=== PATIENT | female | born 1965 | race African-American/Black ===

== ENCOUNTER 2022-04-10 08:50 | Outpatient (CLI) | payer BC, SELFPAY ==
--- NOTE | 2022-04-10 08:45 | CRLHL7_ITS ---
For Patients: As a result of the Century Cures Act, medical imaging exams and procedure reports are released immediately into your electronic medical record. You may view this report before your referring provider. If you have questions, please contact your health care provider. INDICATION: INCREASED PELVIC PAIN, HX BREAST CA, ON TAMOXIFEN, KNOWN FIBROIDS COMPARISON: 02/14/2021 TECHNIQUE: 2D grace scale and color Doppler images were acquired of the pelvis using a transabdominal and transvaginal approach. FINDINGS: Sonographic images demonstrate an increased size and lobular outer contour of the uterus. Uterus measures 12.1 cm in length by 6.9 cm in AP diameter by 9.8 cm in transverse dimension. The myometrium has a heterogeneous echotexture. Multiple fibroids again noted. For example, there is a fibroid in the fundal myometrium measuring 4.7 x 5.1 x 4.7 cm. A smaller fibroid is present within the mid uterus measuring 3.3 x 3.0 x 3.4 cm. Other ill-defined suspected fibroids are present elsewhere. The fibroid uterus makes the endometrium difficult to visualize. The endometrium appears to measure 8 millimeters. A trace amount of endometrial fluid is present. The ovaries are not visualized. No adnexal mass. IMPRESSION: Multiple uterine fibroids. Endometrial thickness approximately 8 millimeters with a trace amount of endometrial fluid. Dictated by Ravinder Glass MD @ 04/10/2022 11:28:34 AM (Electronically Signed)
== END 2022-04-10 08:51 | disposition home or self-care (01) ==
LOC: US 08:52
PROVIDERS: PCP Family Medicine; Visit Provider Internal Medicine Hematology & Oncology
DX: R10.2 Pelvic and perineal pain (principal); D25.9 Leiomyoma of uterus, unspecified
CPT/HCPCS: 76830

== ENCOUNTER 2022-08-30 09:10 | Outpatient (CLI) | payer BC, SELFPAY ==
[2022-08-30 13:45] LABS: Cholesterol* 177 mg/dL (90-199); HDL Cholesterol* 66 mg/dL (>=50); LDL Cholesterol Calculated 97 mg/dL (<100); Triglycerides* 68 mg/dL (40-149)
== END 2022-08-30 09:11 | disposition home or self-care (01) ==
LOC: LKVREF 09:10
PROVIDERS: PCP Family Medicine; Visit Provider Family Medicine
DX: E78.5 Hyperlipidemia, unspecified (principal)
CPT/HCPCS: 80061

== ENCOUNTER 2022-10-25 09:00 | Outpatient (RCR) | payer BC, SELFPAY | END 2022-11-11 23:59 | disposition home or self-care (01) | LOC: CCIC 09:00 | PROVIDERS: PCP Family Medicine; Visit Provider Physician Assistant | DX: C50.911 Malignant neoplasm of unspecified site of right female breast (principal); Z79.810 Long term (current) use of selective estrogen receptor modulators (SERMs); C77.3 Secondary and unspecified malignant neoplasm of axilla and upper limb lymph nodes; N64.59 Other signs and symptoms in breast | CPT/HCPCS: 99212; 99214; 99215 ==

== ENCOUNTER 2022-11-01 08:45 | Outpatient (CLI) | payer BC, SELFPAY ==
--- NOTE | 2022-11-01 08:45 | CRLHL7_ITS ---
For Patients: As a result of the Cures Act, medical imaging exams and procedure reports are released immediately into your electronic medical record. You may view this report before your referring provider. If you have questions, please contact your health care provider. DIGITAL DIAGNOSTIC BILATERAL MAMMOGRAM USING TOMOSYNTHESIS AND COMPUTER-AIDED DETECTION LEFT BREAST ULTRASOUND CLINICAL HISTORY: New sensation in LEFT breast x 2-3 months. COMPARISON: 12/26/2021, 01/31/2021, 10/21/2020, 01/15/2020. TECHNIQUE: Digital BILATERAL mammogram in four projections. Tomosynthesis and CAD utilized. Real-time ultrasound imaging of LEFT breast with imaging documentation. BREAST COMPOSITION: There are areas of scattered fibroglandular density. FINDINGS: 3D CC/MLO BILATERAL mammogram images submitted. Postop changes RIGHT lumpectomy and BILATERAL reduction mammoplasty. Benign calcifications. No suspicious masses or architectural distortion. Targeted LEFT breast ultrasound performed in the retroareolar region demonstrates no sonographic abnormality. No fluid collection or mass. IMPRESSION: No evidence of malignancy. Normal BILATERAL 3D mammograms and targeted LEFT breast ultrasound. RECOMMENDATIONS: Clinical follow-up. Routine screening mammography. Results and recommendations discussed with the patient. BI-RADS Category 2: Benign A lay language report of this examination will be provided to the patient. Dictated by Ravinder Glass MD @ 11/01/2022 10:18:56 AM /Dictated by: Ravinder Glass MD @ 11/01/2022 10:19:00 AM (Electronically Signed)
--- NOTE | 2022-11-01 09:15 | CRLHL7_ITS ---
For Patients: As a result of the Cures Act, medical imaging exams and procedure reports are released immediately into your electronic medical record. You may view this report before your referring provider. If you have questions, please contact your health care provider. PLEASE SEE DIGITAL DIAGNOSTIC BILATERAL MAMMOGRAM PERFORMED SAME DAY CRL:amelia cisneros/Dictated by: Ravinder Glass MD @ 11/01/2022 10:19:00 AM (Electronically Signed)
== END 2022-11-01 08:46 | disposition home or self-care (01) ==
LOC: MAMMO 08:47
PROVIDERS: PCP Family Medicine; Visit Provider Physician Assistant
DX: N64.59 Other signs and symptoms in breast (principal); C77.3 Secondary and unspecified malignant neoplasm of axilla and upper limb lymph nodes; Z80.3 Family history of malignant neoplasm of breast
CPT/HCPCS: 76642; 77065; G0279

== ENCOUNTER 2023-02-20 08:55 | Outpatient (CLI) | payer BC, SELFPAY | END 2023-02-20 08:56 | disposition home or self-care (01) | LOC: NFLDREF 02-21 12:26 | PROVIDERS: PCP Family Medicine; Referring Provider Family Medicine; Visit Provider Family Medicine | DX: R73.03 Prediabetes (principal); I10 Essential (primary) hypertension; D70.9 Neutropenia, unspecified; D64.9 Anemia, unspecified | CPT/HCPCS: 80048; 80061; 82043; 82570 ==

== ENCOUNTER 2023-06-27 08:07 | Outpatient (RCR) | payer BC, SELFPAY ==
--- NOTE | 2023-12-20 09:54 | ONC.NURNOTE ---
Cancelled upcoming appointment 12/25/23 with Oncology. E Commerce Project Manager spoke with patient and has undergone 3 chemo sessions for Leiomyosarcoma with [facility] and will be staying with them at this time.
== END 2023-12-24 23:59 | disposition home or self-care (01) ==
LOC: CCIC 08:07
PROVIDERS: PCP Family Medicine; Visit Provider Physician Assistant
DX: C50.911 Malignant neoplasm of unspecified site of right female breast (principal); Z17.0 Estrogen receptor positive status [ER+]; C77.3 Secondary and unspecified malignant neoplasm of axilla and upper limb lymph nodes; D36.9 Benign neoplasm, unspecified site; R10.9 Unspecified abdominal pain
CPT/HCPCS: 99212; 99215

== ENCOUNTER 2023-06-28 11:30 | Outpatient (CLI) | payer BC, SELFPAY ==
--- NOTE | 2023-06-28 12:38 | W.ANESCHARGE ---
Anesthesia Charges Start Date/Time Anesthesia Start Date: 06/28/23 Anesthesia Start Time: 12:19 Stop Date/Time Anesthesia Stop Date: 06/28/23 Anesthesia Stop Time: 12:44
--- NOTE | 2023-06-28 12:46 | W.ANESCHARGE ---
Anesthesia Charges Start Date/Time Anesthesia Start Date: 06/28/23 Anesthesia Start Time: 12:19 Stop Date/Time Anesthesia Stop Date: 06/28/23 Anesthesia Stop Time: 12:44
== END 2023-06-28 11:31 | disposition home or self-care (01) ==
LOC: OP CLINIC 11:30
PROVIDERS: PCP Family Medicine; Visit Provider Internal Medicine
DX: Z12.11 Encounter for screening for malignant neoplasm of colon (principal); K57.30 Diverticulosis of large intestine without perforation or abscess without bleeding; Z86.010 Personal history of colon polyps
CPT/HCPCS: 00811; 00812; 45378; J2704

== ENCOUNTER 2023-07-09 13:24 | Outpatient (CLI) | payer BC, SELFPAY ==
--- NOTE | 2023-07-09 14:00 | CRLHL7_ITS ---
For Patients: As a result of the Century Cures Act, medical imaging exams and procedure reports are released immediately into your electronic medical record. You may view this report before your referring provider. If you have questions, please contact your health care provider. Indication: ABDOMINAL PAIN LOWER ABDOMEN Technique: CT Abdomen/Pelvis W/ 114CC [id number] Please note that all CT scans at this facility use dose modulation, iterative reconstruction, and/or weight-based dosing when appropriate to reduce radiation dose to as low as reasonably achievable. Comparison: CT 09/20/2015, pelvic ultrasound 04/10/2022 Findings: 1.1 cm simple cyst within the liver. Diffuse low attenuation of the hepatic parenchyma present. The liver is enlarged measuring 21 cm. Lung bases are clear. The adrenal glands are normal. Normal kidneys. The spleen is within normal limits. Normal pancreas. Gallbladder is normal. No bowel obstruction. A few scattered subcentimeter retroperitoneal lymph nodes are similar. Atherosclerotic changes. No aneurysm. The bladder is incompletely distended. Ovaries are unremarkable. The uterus is enlarged, as before with endometrial thickening. The endometrium measures approximately 4 cm. Multiple uterine fibroids are present measuring up to approximately 8.9 cm. Weakening of the ventral abdominal wall again noted. There is now a small fat filled hernia in the supraumbilical midline containing fat measuring 2.9 cm. Mild pelvic free fluid is present. No fracture is present. Mild bulging of the discs in the lower lumbar spine without severe stenosis. Mild degenerative changes at both hips. Impression: Fibroid uterus. The uterus is enlarged with multiple fibroids. Thickened endometrium is present. Patient has a history of tamoxifen therapy. Normal ovaries. Gynecologic referral suggested. Hepatomegaly with diffuse hepatic steatosis and incidental intrahepatic cyst. Chronic diastasis recti with small supraumbilical midline abdominal wall hernia containing fat measuring 3 cm. Please note that all CT scans at this facility use dose modulation, iterative reconstruction, and/or weight-based dosing when appropriate to reduce radiation dose to as low as reasonably achievable. Dictated by Ravinder Glass MD @ 07/11/2023 11:13:19 AM (Electronically Signed)
== END 2023-07-09 13:25 | disposition home or self-care (01) ==
LOC: CT 13:25
PROVIDERS: PCP Family Medicine; Visit Provider Nurse Practitioner Family
DX: R10.9 Unspecified abdominal pain (principal); D25.9 Leiomyoma of uterus, unspecified; R93.89 Abnormal findings on diagnostic imaging of other specified body structures
CPT/HCPCS: 74177; Q9967

== ENCOUNTER 2023-07-17 13:40 | Outpatient (CLI) | payer BC, SELFPAY | END 2023-07-17 13:41 | disposition home or self-care (01) | LOC: NFLDREF 07-24 15:45 | PROVIDERS: PCP Family Medicine; Referring Provider Family Medicine; Visit Provider Family Medicine | DX: C50.911 Malignant neoplasm of unspecified site of right female breast (principal); D70.9 Neutropenia, unspecified; E78.00 Pure hypercholesterolemia, unspecified; I10 Essential (primary) hypertension; R73.03 Prediabetes | CPT/HCPCS: 80053; 80061 ==

== ENCOUNTER 2023-08-08 08:28 | Outpatient (CLI) | payer BC, SELFPAY ==
--- NOTE | 2023-08-08 08:45 | CRLHL7_ITS ---
For Patients: As a result of the Cures Act, medical imaging exams and procedure reports are released immediately into your electronic medical record. You may view this report before your referring provider. If you have questions, please contact your health care provider. DIGITAL DIAGNOSTIC BILATERAL MAMMOGRAM USING TOMOSYNTHESIS AND COMPUTER-AIDED DETECTION LEFT BREAST ULTRASOUND CLINICAL HISTORY: LEFT breast lump. COMPARISON: 11/01/2022, 12/26/2021, 01/31/2021, 10/21/2020. TECHNIQUE: Digital BILATERAL mammogram in two projections. Tomosynthesis and CAD utilized. Real-time ultrasound imaging of LEFT breast with imaging documentation. BREAST COMPOSITION: There are areas of scattered fibroglandular density. FINDINGS: 3D CC/MLO mammogram images submitted bilaterally. Circumscribed low-density structures are present within the upper outer quadrant LEFT breast. No architectural distortion. Benign calcifications noted bilaterally. No adenopathy. Post treatment changes of the RIGHT breast. Targeted LEFT breast ultrasound performed at 11 o`clock 10 cm from the nipple. Multiple benign calcified oil cysts are present at anterior depth measuring up to 6 millimeters. IMPRESSION: Benign calcified oil cysts LEFT breast 11 o`clock 10 cm from the nipple. No suspicious findings. RECOMMENDATIONS: Routine screening mammography. Results and recommendations discussed with the patient. BI-RADS Category 2: Benign A lay language report of this examination will be provided to the patient. Dictated by Ravinder Glass MD @ 08/08/2023 10:58:52 AM jj/Dictated by: Ravinder Glass MD @ 08/08/2023 10:59:00 AM (Electronically Signed)
--- NOTE | 2023-08-08 09:15 | CRLHL7_ITS ---
For Patients: As a result of the Cures Act, medical imaging exams and procedure reports are released immediately into your electronic medical record. You may view this report before your referring provider. If you have questions, please contact your health care provider. PLEASE SEE DIGITAL DIAGNOSTIC BILATERAL MAMMOGRAM PERFORMED SAME DAY CRL:amelia cisneros/Dictated by: Ravinder Glass MD @ 08/08/2023 11:30:00 AM (Electronically Signed)
== END 2023-08-08 08:29 | disposition home or self-care (01) ==
LOC: MAMMO 08:28
PROVIDERS: PCP Family Medicine; Visit Provider Nurse Practitioner Family
DX: N63.22 Unspecified lump in the left breast, upper inner quadrant (principal); N60.02 Solitary cyst of left breast
CPT/HCPCS: 76642; 77066; G0279

== ENCOUNTER 2024-01-10 16:20 | Outpatient (CLI) | payer BC, SELFPAY ==
--- OUTSIDE RECORDS SUMMARY | 2024-01-10 16:23 | XMS_ITS | Referral Summary ---
Author Organization [facility] Address [address] [place] [id number] Care Team Providers Care Rent Collector Name Role Phone Tavo Vazquez MD Unavailable [phone] Sajan Petit MD Primary Care Provider [phone] Allergies Active Allergy Reactions Criticality Noted Date Comments Anastrozole Itching High 04/28/2018 Doxepin Dizziness Medium 04/28/2018 Medications Medication Sig Dispensed Refills Start Date End Date Status famotidine (PEPCID) 20 MG tablet Take 1 tablet (20 mg) by mouth 2 times daily 30 tablet 08/19/2019 Active metoclopramide (REGLAN) 5 MG tablet Take 1 tablet (5 mg) by mouth 4 times daily as needed (headache) 10 tablet 08/19/2019 Active diphenhydrAMINE (BENADRYL ALLERGY) 25 MG tablet Take 1 tablet (25 mg) by mouth 4 times daily as needed for other (Take when you take reglan) 10 tablet 08/19/2019 Active Active Problems Problem Noted Date Diagnosed Date Malignant neoplasm of right breast 06/11/2017 Family history of malignant neoplasm of breast 1 08/11/2016 Social History Tobacco Use Types Packs/Day Years Used Date Smoking Tobacco: Never Assessed Adolescent Education Answer Date Record ed Getting School Help Needed Not on file 04/05 Sex and Gender Information Value Date Recorded Sex Assigned at Not on file Gender Identity Not on file Sexual Orientation Not on file Last Filed Vital Signs Vital Sign Reading Time Taken Comments Blood Pressure 175/96 11/25/2022 9:48 PM CDT Pulse 93 11/25/2022 9:48 PM CDT Temperature 36.2 ??C (97.2 ??F) 11/25/2022 9:48 PM CD T Respiratory Rate 16 11/25/2022 9:48 PM CDT Oxygen Saturation 99% 11/25/2022 9:48 PM CDT Inhaled Oxygen Concentration - - Weight 99.8 kg (220 lb) 08/19/2019 4:10 PM CHILD SUPPORT OFFICER Height 165.1 cm (5' 5) 08/19/2019 4:10 PM CHILD SUPPORT OFFICER Body Mass Index 36.61 08/19/2019 4:10 PM CHILD SUPPORT OFFICER Plan of Treatment Not on file Procedures Procedure Name Priority Date/Time Associated Diagnosis Comments BASIC METABOLIC PANEL STAT 08/19/2019 5:41 PM CHILD SUPPORT OFFICER from Last 3 Months or Most Recently Relevant to Health Maintenance Results * Basic metabolic panel (08/19/2019 5:41 PM CHILD SUPPORT OFFICER) Sodium 140 133 - 144 mmol/L 08/19/2019 6:[address] [facility] Potassium 3.7 3.4 - 5.3 mmol/L 08/19/2019 6:[address] [facility] Chloride 104 94 - 109 mmol/L 08/19/2019 6:[address] [facility] Carbon Dioxide 31 20 - 32 mmol/L 08/19/2019 6:[address] [facility] Anion Gap 5 3 - 14 mmol/L 08/19/2019 6:[address] [facility] Glucose 92 70 - 99 mg/dL 08/19/2019 6:[address] [facility] Urea Nitrogen 10 7 - 30 mg/dL 08/19/2019 6:[address] [facility] Creatinine 0.71 0.52 - 1.04 mg/dL 08/19/2019 6:[address] [facility] GFR Estimate >90 >60 mL/min/{1. 73_m2} 08/19/2019 6:[address] [facility] Comment: Non GFR Calc Starting 07/01/2018, serum creatinine based estimated GFR (eGFR) will be calculated using the Chronic Kidney Disease Epidemiology Collaboration (CKD-EPI) equation. GFR Estimate If Black >90 >60 mL/min/{1. 73_m2} 08/19/2019 6:[address] [facility] Comment: GFR Calc Starting 07/01/2018, serum creatinine based estimated GFR (eGFR) will be calculated using the Chronic Kidney Disease Epidemiology Collaboration (CKD-EPI) equation. Calcium 9.2 8.5 - 10.1 mg/dL 08/19/2019 6:09 PM CHILD SUPPORT OFFICER [facility] Blood specimen (specimen) 08/19/2019 5:41 PM CHILD SUPPORT OFFICER 08/19/2019 5:47 PM CHILD SUPPORT OFFICER Ravinder Nichole MD LAB - BLOOD [facility] [address] [place], [place] [address] [phone] from Last 3 Months or Most Recently Relevant to Health Maintenance Care Teams Rent Collector Relationship Specialty Start Date End Date Sajan Petit MD [facility] [address] [place] [address] PCP - General Family Practice 08/19/19 Tavo Vazquez MD [facility] [address] [facility] [address] [place] [address] Oncology 02/12/17
--- OUTSIDE RECORDS SUMMARY | 2024-01-10 16:23 | XMS_ITS | Clinical Summary ---
Author Organization [facility] Address [place], [place] [address] Care Team Providers Care Property Claim Rep Name Role Phone Sajan Petit MD Primary Care Provider [phone] Allergies Active Allergy Reactions Criticality Noted Date Comments Anastrozole Itching High 04/28/2018 Doxepin Dizziness Medium 04/28/2018 Tetracyclines Nausea And Vomiting 09/13/2023 Medications Medication Sig Dispensed Refills Start Date End Date Status LORazepam (ATIVAN) 0.5 mg tab Take 0.5 mg by mouth at bedtime if needed. Active lisinopril (PRINIVIL; ZESTRIL) 20 mg tablet Take 20 mg by mouth once daily. Active metFORMIN (GLUCOPHAGE XR) 500 mg Extended-Release tablet Take 500 mg by mouth once daily. 07/03/2023 Active rosuvastatin (CRESTOR) 10 mg tablet Take 10 mg by mouth once daily. 07/12/2023 Active hydroCHLOROthiazid e (HCTZ) 25 mg tablet Take 25 mg by mouth once daily. 07/21/2023 Active acetaminophen (TYLENOL) 325 mg tabletIndications: Endometrial cancer (HC) Take 1-2 Tablets (325-650 mg) by mouth every 4 hours if needed for Pain. Max acetaminophen dose: 4000mg in 24 hrs. 08/25/2023 Active ibuprofen (ADVIL; MOTRIN) 200 mg tabletIndications: Endometrial cancer (HC) Take 1-3 Tablets (200-600 mg) by mouth every 6 hours if needed for Pain. 08/25/2023 Active oxyCODONE (ROXICODONE) 5 mg immediate release tabletIndications: Endometrial cancer (HC) Take 1 Tablet (5 mg) by mouth every 4 hours if needed for Pain. 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 Endometrial cancer 08/21/2023 Social History Tobacco Use Types Packs/Day Years Used Date Smoking Tobacco: Never Smokeless Tobacco: Never Alcohol Use Standard Drinks/Week Comments No 0 (1 standard drink = 0.6 oz pur e alcohol) Social Connections Answer Date Recorded Frequency of Communication with Friends and Fami ly Not on file 08/20/2023 Sex and Gender Information Value Date Recorded Sex Assigned at Not on file Gender Identity Not on file Sexual Orientation Not on file Obstetrics History Last Filed Vital Signs Vital Sign Reading Time Taken Comments Blood Pressure 139/66 09/13/2023 10:15 AM JIG GRINDER Pulse 75 09/13/2023 10:15 AM JIG GRINDER Temperature 37.1 ??C (98.7 ??F) 09/13/2023 7:16 AM CS T Respiratory Rate 16 09/13/2023 10:15 AM JIG GRINDER Oxygen Saturation 99% 09/13/2023 10:15 AM JIG GRINDER Inhaled Oxygen Concentration - - Weight 98 kg (216 lb) 09/13/2023 7:16 AM JIG GRINDER Height 165.1 cm (5' 5) 09/13/2023 7:16 AM JIG GRINDER Body Mass Index 35.94 09/13/2023 7:16 AM JIG GRINDER Plan of Treatment Health Maintenance Due Date Last Done Comments Tdap 1977 Depression screening for age 12+ 1978 HIV for age 15-65 1981 BMI (ht and wt on same day) for age 18+ 1984 Hepatitis C screening for age 18-79 1984 Tetanus booster 1986 Colonoscopy through age 75 11/02/2011 Lipids for age 45-75 11/02/2011 Zoster (shingles) series for age 50+ (1 of 2) 2016 Mammogram for age 45-75 01/02/2020 01/01/2019, 12/31 COVID-19 vaccine series (2022- season) 2023 04/18/2022, 09/26/2021, 01/31/2021, Additional history exists Influenza for age 50-64 03/15/2024 Pap test for age 21-65 07/29/2026 , 07/29/2023, 01/20/2018, Additional history exists Pneumococcal series for age 6-64 Aged Out No longer eligible based on patient's age to complete this topic Procedures Procedure Name Priority Date/Time Associated Diagnosis Comments HPV THIN PREP Routine 07/29/2023 12:00 PM JIG GRINDER SCAN-MAMMOGRAPHY REPORT 01/01/2019 12:00 AM CDT from Last 3 Months or Most Recently Relevant to Health Maintenance Results * HPV HIGH RISK (07/29/2023 12:00 PM JIG GRINDER) TYPE 16 Negative Negative 08/01/2023 5:31 PM JIG GRINDER [facility] TYPE 18 Negative Negative 08/01/2023 5:31 PM JIG GRINDER [facility] OTHER HIGH RISK TYPES Negative Negative 08/01/2023 5:31 PM JIG GRINDER [facility] Other (Cervical) 07/29/2023 12:00 PM JIG GRINDER 07/30/2023 6:07 PM JIG GRINDER Narrative [facility] - 08/01/2023 5:31 PM JIG GRINDER HPV types 16, 18, 31, 33, 35, 39, 45, 51, 52, 56, 58, 59, 66 and 68 DNA were undetectable or below the pre-set threshold. Methodology: Sania Un[facility] 4800 HPV Test Doctor Unknown MICROBIOLOGY [facility] [address] [place] [address], * SCAN-MAMMOGRAPHY REPORT (01/01/2019 12:00 AM CDT) Anatomical Region Laterality Modality Other Scanner OTHER from Last 3 Months or Most Recently Relevant to Health Maintenance Advance Directives * Full Code (Latest Code Status on File) Date Activated Date Inactivated Comments 08/20/2023 2:27 PM 08/25/2023 7:52 PM Question Answer Comments Code Status Discussion: Reviewed Preferences * Full Code Date Activated Date Inactivated Comments 08/20/2023 7:43 AM 08/20/2023 2:27 PM Question Answer Comments Code Status Discussion: Unable to Assess Preferences, Provider to review later * Full Code Date Activated Date Inactivated Comments 05/01/2018 5:58 AM 05/01/2018 5:38 PM Question Answer Comments Code Status Discussion: Not Discussed Care Teams Property Claim Rep Relationship Specialty Start Date End Date Sajan Petit MD [address] [place] [address] PCP - General Family Practice 04/28/18
--- OUTSIDE RECORDS SUMMARY | 2024-01-10 16:23 | XMS_ITS | Clinical Summary ---
Author Organization [facility] Address [address] [address] Care Team Providers Care Ceramics Technician Name Role Phone Sajan Petit MD Primary Care Provider [phone] Source Comments You are receiving this document as you are listed as the primary care provider,follow-up provider, or the patient has been referred to you for consultation.This is in compliance with the Medicare and[facility] EHR Incentive Program,which states Providers who transition their patient to another setting of careor provider of care or refers their patient to another provider of care shouldprovide summary care record for each transition of care or referral. [facility] Allergies Active Allergy Reactions Criticality Noted Date Comments Anastrozole Itching High 04/28/2018 Doxepin Dizziness Medium 04/28/2018 Medications Medication Sig Dispensed Refills Start Date End Date Status exemestane (AROMASIN) 25 MG tablet Take 1 Tablet (25 mg) by mouth. Active hydroCHLOROthiazide (ORETIC) 12.5 MG tablet Take 1 Tablet (12.5 mg) by mouth. Active tamoxifen (NOLVADEX) 20 MG tablet Take 1 Tablet (20 mg) by mouth daily. Active Social History Tobacco Use Types Packs/Day Years Used Date Smoking Tobacco: Never Assessed Sex and Gender Information Value Date Recorded Sex Assigned at Not on file Gender Identity Not on file Sexual Orientation Not on file Plan of Treatment Health Maintenance Due Date Last Done Comments Cervical Cancer Screening Due 1966 Colon Cancer Screening Plan Due 1966 Hep C Screening (Preventive Services) 1966 Mammogram 1966 HIV Screening (Preventive Services) 1982 Adult Preventive Visit 1984 DTaP/Tdap/Td (1 - Tdap) 1985 HepB (1) 1985 Cholesterol 11/02/2011 Zoster/Shingles (1 of 2) 2016 COVID-19 Vaccine (1 - 2022-2 4 season) 2023 Influenza (Season Ended) 2024 HepA Aged Out No longer eligi ble based on patient's age to complete this topic Hib Aged Out No longer eligi ble based on patient's age to complete this topic IPV (Polio) Aged Out No longer eligi ble based on patient's age to complete this topic MCV4 Aged Out No longer eligi ble based on patient's age to complete this topic Pneumococcal Aged Out No longer eligi ble based on patient's age to complete this topic Care Teams Ceramics Technician Relationship Specialty Start Date End Date Sajan Petit MD [address] [place] [address] PCP - General Family Practice 12/14/22
--- OUTSIDE RECORDS SUMMARY | 2024-01-10 16:23 | XMS_ITS | Continuity of Care Document ---
Author Organization [facility] Address [address] [address] [place] [address] Phone Care Team Providers Care Respiratory Care Specialist Name Role Phone Karan Galvan MD Unavailable Unavailable Advance Directives Directive Yes / No Effective Date File Name No Information Encounters Encounter Description Practice Location Reason(s) For Visit Diagnoses Date Provider Providers Copied on Encounter [facility], [address] [address], [place], [place], [id number], [place] tel:[phone] [facility] No Information Mandy Russo. [address] [facility], [address], [place], [place], [id number], [place]. tel:[phone] Family History Family Member Type Diagnosis Age At Onset No Information Immunizations Vaccine Date Status Comments SARS-COV-2 (COVID-19) vaccin e, mRNA, spike protein, LNP, preservative free, 30 mcg/0.3mL dose administered Note: [facility] bi-direct ional interface ; Source: Other Registry SARS-COV-2 (COVID-19) vaccin e, mRNA, spike protein, LNP, preservative free, 30 mcg/0.3mL dose administered Note: [facility] bi-direct ional interface ; Source: Other Registry Seasonal, quadrivalent, recombinant, injectable influenza vaccine, preservative free administered Note: [facility] bi-direct ional interface ; Source: Other Registry Afluria Qd administered Note: [facility] bi-directional interface ; Source: Other Registry Afluria Qd administered Note: [facility] bi-directional interface ; Source: Other Registry tetanus and diphtheria toxoi ds, adsorbed, preservative free, for adult use (5 Lf of tetanus toxoid and 2 Lf of diphtheria toxoid) administered Note: [facility] bi-direct ional interface ; Source: Other Registry Pneumovax 23 administered Note: [facility] bi-d irectional interface ; Source: Other Registry tetanus and diphtheria toxoi ds, adsorbed, preservative free, for adult use (5 Lf of tetanus toxoid and 2 Lf of diphtheria toxoid) administered Note: [facility] bi-direct ional interface ; Source: Other Registry Afluria Qd administered Note: [facility] bi-directional interface ; Source: Other Registry Havrix administered Note: [facility] bi-d irectional interface ; Source: Other Registry measles, mumps and rubella v irus vaccine administered Note: [facility] bi-direct ional interface ; Source: Other Registry tetanus toxoid, reduced diphtheria toxoid, and acellular pertussis vaccine, adsorbed administered Note: [facility] b i-directional interface ; Source: Other Registry Influenza, seasonal, injectable administe red Note: [facility] bi- directional interface ; Source: Other Registry measles, mumps and rubella v irus vaccine administered Note: [facility] bi-direct ional interface ; Source: Other Registry Havrix administered Note: [facility] bi-d irectional interface ; Source: Other Registry Payers Payer name Insurance type Covered libertarian ID Authoriza tion(s) No Information Social History Type Description Quantity Date Captured Comments Sex Female Smoking Status No Information Chief Complaint And Reason For Visit No Information Reason For Referral Reason For Referral No Information History Of Present Illness Encounter Date Complaint History Of Prese nt Illness No Information Functional Status Date Functional Assessmen t No Information Instructions Date Instruction Additional Infor mation No Information Assessments Type Assessment Date No Information Patient Care Teams Name Effective Dates (start - stop) Status Members No Information
--- OUTSIDE RECORDS SUMMARY | 2024-01-10 16:23 | XMS_ITS | Clinical Summary ---
Author Organization [facility] Address [address] [place] [address] Care Team Providers Care Barber Instructor Name Role Phone Tavo Vazquez MD Unavailable [phone] Sajan Petit MD Primary Care Provider [phone] Allergies Active Allergy Reactions Criticality Noted Date [...] 99.8 kg (220 lb) 08/19/2019 4:10 PM MANAGER RFID Height 165.1 cm (5' 5) 08/19/2019 4:10 PM MANAGER RFID Body Mass Index 36.61 08/19/2019 4:10 PM MANAGER RFID Plan of Treatment Health Maintenance Due Date Last Done Comments ADVANCE CARE PLANNING 1966 ANNUAL REVIEW OF HM ORDERS 1966 CT COLONOGRAPHY 1966 FIT 1966 FLEX SIG 1966 MAMMO SCREENING 1966 YEARLY PREVENTIVE VISIT 1966 sDNA (Cologuard) 1966 COLONOSCOPY 1976 COLORECTAL CANCER SCREENING 1976 HIV SCREENING 1981 HEPATITIS C SCREENING 1984 HEPATITIS B IMMUNIZATION (1 of 3 - 19+ 3-dose series) 1985 PAP 11/02/1987 LIPID 2006 DTAP/TDAP/TD IMMUNIZATION (1 - Tdap) 02/03/2015 02/02/2015, 08/03/2014 ZOSTER IMMUNIZATION (1 of 2) 2016 GLUCOSE 08/19/2022 08/19/2019 COVID-19 Vaccine (1 - season) 2023 PHQ-2 (once per calendar year) 2023 INFLUENZA VACCINE (Season Ended) 2024 06/04/2019, 04/18/2018, 05/12/2015, Additional history exists HPV IMMUNIZATION Aged Out No longer e ligible based on patient's age to complete this topic IPV IMMUNIZATION Aged Out No longer e ligible based on patient's age to complete this topic MENINGITIS IMMUNIZATION Aged Out No l onger eligible based on patient's age to complete this topic Pneumococcal Vaccine: Pediatrics (0 to 5 Years) and At-Risk Patients (6 to 64 Years) Aged Out No longer eligible based on patient's age to complete this topic RSV MONOCLONAL ANTIBODY Aged Out No l onger eligible based on patient's age to complete this topic Procedures Procedure Name Priority Date/Time Associated Diagnosis Comments BASIC METABOLIC PANEL STAT 08/19/2019 5:41 PM MANAGER RFID from Last 3 Months or Most Recently Relevant to Health Maintenance Results * Basic metabolic panel (08/19/2019 5:41 PM MANAGER RFID) Sodium 140 133 - 144 mmol/L 08/19/2019 6:04 PM [facility] Potassium 3.7 3.4 - 5.3 mmol/L 08/19/2019 6:04 PM [facility] Chloride 104 94 - 109 mmol/L 08/19/2019 6:04 PM [facility] Carbon Dioxide 31 20 - 32 mmol/L 08/19/2019 6:09 PM [facility] Anion Gap 5 3 - 14 mmol/L 08/19/2019 6:09 PM [facility] Glucose 92 70 - 99 mg/dL 08/19/2019 6:09 PM [facility] Urea Nitrogen 10 7 - 30 mg/dL 08/19/2019 6:09 PM [facility] Creatinine 0.71 0.52 - 1.04 mg/dL 08/19/2019 6:09 PM [facility] GFR Estimate >90 >60 mL/min/{1. 73_m2} 08/19/2019 6:09 PM [facility] Comment: Non GFR Calc Starting 07/01/2018, serum creatinine based estimated GFR (eGFR) will be calculated using the Chronic Kidney Disease Epidemiology Collaboration (CKD-EPI) equation. GFR Estimate If Black >90 >60 mL/min/{1. 73_m2} 08/19/2019 6:09 PM [facility] Comment: GFR Calc Starting 07/01/2018, serum creatinine based estimated GFR (eGFR) will be calculated using the Chronic Kidney Disease Epidemiology Collaboration (CKD-EPI) equation. Calcium 9.2 8.5 - 10.1 mg/dL 08/19/2019 6:09 PM [facility] Blood specimen (specimen) 08/19/2019 5:41 PM MANAGER RFID 08/19/2019 5:47 PM MANAGER RFID Ravinder Nichole MD LAB - BLOOD [facility] [address] [place] [address], [facility] [phone] from Last 3 Months or Most Recently Relevant to Health Maintenance Care Teams Barber Instructor Relationship Specialty Start Date End Date Sajan Petit MD [facility] [address] [place] [address] PCP - General Family Practice 08/19/19 Tavo Vazquez MD [facility] [address] [facility] [address] [place] [address] Oncology 02/12/17
== END 2024-01-10 16:21 | disposition home or self-care (01) ==
LOC: LKVREF 16:22
PROVIDERS: PCP Family Medicine; Visit Provider Family Medicine
DX: I10 Essential (primary) hypertension (principal)
CPT/HCPCS: 80048

== ENCOUNTER 2024-04-08 12:46 | Outpatient (RCR) | payer BC, SELFPAY ==
--- NOTE | 2024-04-10 10:45 | PT.OPE ---
PT [facility] Outpatient Eval PT [facility] Outpatient Eval Start: 04/08/24 15:12 Freq: Status: Active Protocol: Document 04/08/24 15:12 JAZMINE (Rec: 04/08/24 15:15 JAZMINE [id number]) E-signed By GUS WilksT, MS Physical Therapy Outpatient Evaluation Insurance Information Recert Due Date 07/07/24 Insurance Name Medicaid,Blue Cross/Blue Shield Treating Diagnosis Pain in unspecified foot Imaging Report Information B (L>R) plantar fascia pain, imbalance, gait dysfunction, decreased B (R>L) LE flexibility, and decreased B LE strength and endurance. Subjective Preferred Name Afua Subjective Pt presents to PT with c/o chronic R foot and plantar fascia pain over the past 3-4 months with gradual increase in sx intensity. Describes sxs as sharp pain on the plantar fascia origin and R arch with increased pain as the day progresses. Stopped her daily walks due to high level of pain over the past several weeks. Has had flat feet her entire life and recalls her dad using sticks to splint B legs due to bow leggedness as a kid growing up in [place]. 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 Has tried stretches she found online but calf stretching is too painful. Wears supportive walking shoes throughout the day but cannot wear shoes or sandals in her home due to cultural norms. In remission for uterine cancer and believes chemotherapy may have contributed to sxs since she had plantar fasciitis in 2018 and 2019. PSH includes a hysterectomy. AGGR factors: walking, standing, uneven surfaces, carrying objects, transferring clients. ALLEV factors: rest, movement, ice. Pt hopes to decrease pain to improve tolerance to all work and daily activities and return to regular walking. 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 Spends > 10 hours per day on her feet Precautions Therapy Limitations/Systems Review Not Limited Assessment Assessment/Impression Pt displays signs and symptoms consistent with dx of R plantar fasciitis with significant R peroneal, posterior tibialis, and glute weakness found with testing. R gastroc and soleus are very tight with good response to gentle stretching. Impaired SLS balance B also appears to be contributing to sxs. + pain with palpation and windlass testing. She responded well to stretching, balance and strengthening exercises with resolution of pain with amb and standing following. She would benefit greatly from continued skilled therapy to address these limitations. Primary Functional Limitations Walking, standing, uneven surfaces, carrying objects, transferring clients. Plan of Care Rehabilitation Potential Good Rehabilitation Potential Comments Due to chronic nature of sxs and occupation Physical Therapy Goals Therapy goals to be completed in 10 weeks: 1. Pt will be independent and compliant with HEP 2. Pt will display improved B peroneal, hip flex, ABD and ext strength >/= 4+/5 to improve quality of gait and tolerance to household activities. 3. Pt will be able to walk for >15 minutes with no elevation in B LE pain to improve cardiovascular fitness. 4. Pt will report improved R foot pain <3/10 at the end of >2 consecutive work days to safely perform all work duties . Coordination/Communication With Referral Source Treatment Plan/Direct Interventions Manual Therapy,Neuromuscular Re-ed,Therapeutic Exercises Frequency/Duration 1x per week for at least 6-10 visits, decreasing frequency as able. Patient Will Be Discharged From Therapy Completion of LTG(s),Skills Plateau,Independent w/HEP, Independently Progressing Evaluation Billing Untimed Code Treatment Minutes 24 Complexity Moderate Certification Information Initial Certification Date 04/08/24 Ending Certification Date 07/07/24 Provider Signature Required Yes Provider Signature Shows Agreement With POC & Medical Necessity Physician NPI Number Write NPI# Here Physician Comment/Change : Physician Signature & Date Requested Please Sign/Date Here
== END 2024-08-06 23:59 | disposition home or self-care (01) ==
PROVIDERS: PCP Family Medicine; Visit Provider Physician Assistant Surgical
DX: M79.672 Pain in left foot (principal); M79.671 Pain in right foot; R26.89 Other abnormalities of gait and mobility; R29.898 Other symptoms and signs involving the musculoskeletal system; Z51.89 Encounter for other specified aftercare
CPT/HCPCS: 97110; 97162

== ENCOUNTER 2024-04-13 11:59 | Outpatient (CLI) | payer BC, SELFPAY ==
--- OUTSIDE RECORDS SUMMARY | 2024-04-13 12:02 | XMS_ITS | Clinical Summary ---
Author Organization [facility] Address [address] [place] [address] Care Team Providers Care Fire Production Operator Name Role Phone Tavo Vazquez MD Unavailable [phone] Sajan Petit MD Primary Care Provider [phone] Allergies Active Allergy Reactions Criticality Noted Date [...] 99.8 kg (220 lb) 08/19/2019 4:10 PM HABITAT BIOLOGIST Height 165.1 cm (5' 5) 08/19/2019 4:10 PM HABITAT BIOLOGIST Body Mass Index 36.61 08/19/2019 4:10 PM HABITAT BIOLOGIST Plan of Treatment Health Maintenance Due Date [...] (1 of 2) 2016 GLUCOSE 08/19/2022 08/19/2019 PHQ-2 (once per calendar year) 2023 COVID-19 Vaccine ( - season) 2024 INFLUENZA VACCINE (#1) 2024 9, 04/18/2018, 05/12/2015, Additional history exists RSV VACCINE (1 - 1-dose 75+ series) 2041 HPV IMMUNIZATION Aged Out No longer e [...] BASIC METABOLIC PANEL STAT 08/19/2019 5:41 PM HABITAT BIOLOGIST from Last 3 Months or Most Recently Relevant to Health Maintenance Results * Basic metabolic panel (08/19/2019 5:41 PM HABITAT BIOLOGIST) Sodium 140 133 - 144 mmol/L 08/19/2019 6:04 PM [facility] Potassium 3.7 3.4 - 5.3 mmol/L 08/19/2019 6:04 PM [facility] Chloride 104 94 - 109 mmol/L 08/19/2019 6:04 PM [facility] Carbon Dioxide 31 20 - 32 mmol/L 08/19/2019 6:09 PM [facility] Anion Gap 5 3 - 14 mmol/L 08/19/2019 6:09 PM [facility] Glucose 92 70 - 99 mg/dL 08/19/2019 6:09 PM [facility] Urea Nitrogen 10 7 - 30 mg/dL 08/19/2019 6:09 PM [facility] Creatinine 0.71 0.52 - 1.04 mg/dL 08/19/2019 6:09 PM [facility] GFR Estimate >90 >60 mL/min/{1. 73_m2} 08/19/2019 6:09 PM [facility] Comment: Non GFR Calc Starting 07/01/2018, serum creatinine based estimated GFR (eGFR) will be calculated using the Chronic Kidney Disease Epidemiology Collaboration (CKD-EPI) equation. GFR Estimate If Black >90 >60 mL/min/{1. 73_m2} 08/19/2019 6:09 PM [facility] Comment: GFR Calc Starting 07/01/2018, serum creatinine based estimated GFR (eGFR) will be calculated using the Chronic Kidney Disease Epidemiology Collaboration (CKD-EPI) equation. Calcium 9.2 8.5 - 10.1 mg/dL 08/19/2019 6:09 PM [facility] Blood specimen (specimen) 08/19/2019 5:41 PM HABITAT BIOLOGIST 08/19/2019 5:47 PM HABITAT BIOLOGIST Ravinder Nichole MD LAB - BLOOD [facility] [address] [place] [address], [facility] [phone] from Last 3 Months or Most Recently Relevant to Health Maintenance Care Teams Fire Production Operator Relationship Specialty Start Date End Date Sajan Petit MD [facility] [address] [place] [address] PCP - General Family Practice 08/19/19 Tavo Vazquez MD [facility] [address] [facility] [address] [place] [address] Oncology 02/12/17
--- OUTSIDE RECORDS SUMMARY | 2024-04-13 12:02 | XMS_ITS | Referral Summary ---
Author Organization [facility] Address [address] [place] [address] Care Team Providers Care Emergency Technician Name Role Phone Tavo Vazquez MD Unavailable [phone] Sajan Petit MD Primary Care Provider [phone] Allergies Active Allergy Reactions Criticality Noted Date [...] 99.8 kg (220 lb) 08/19/2019 4:10 PM TIMBER APPRAISER Height 165.1 cm (5' 5) 08/19/2019 4:10 PM TIMBER APPRAISER Body Mass Index 36.61 08/19/2019 4:10 PM TIMBER APPRAISER Plan of Treatment Not on file Procedures Procedure Name Priority Date/Time Associated Diagnosis Comments BASIC METABOLIC PANEL STAT 08/19/2019 5:41 PM TIMBER APPRAISER from Last 3 Months or Most Recently Relevant to Health Maintenance Results * Basic metabolic panel (08/19/2019 5:41 PM TIMBER APPRAISER) Sodium 140 133 - 144 mmol/L 08/19/2019 6:04 PM [facility] Potassium 3.7 3.4 - 5.3 mmol/L 08/19/2019 6:04 PM [facility] Chloride 104 94 - 109 mmol/L 08/19/2019 6:04 PM [facility] Carbon Dioxide 31 20 - 32 mmol/L 08/19/2019 6:09 PM [facility] Anion Gap 5 3 - 14 mmol/L 08/19/2019 6:09 PM [facility] Glucose 92 70 - 99 mg/dL 08/19/2019 6:09 PM [facility] Urea Nitrogen 10 7 - 30 mg/dL 08/19/2019 6:09 PM [facility] Creatinine 0.71 0.52 - 1.04 mg/dL 08/19/2019 6:09 PM [facility] GFR Estimate >90 >60 mL/min/{1. 73_m2} 08/19/2019 6:09 PM [facility] Comment: Non GFR Calc Starting 07/01/2018, serum creatinine based estimated GFR (eGFR) will be calculated using the Chronic Kidney Disease Epidemiology Collaboration (CKD-EPI) equation. GFR Estimate If Black >90 >60 mL/min/{1. 73_m2} 08/19/2019 6:09 PM [facility] Comment: GFR Calc Starting 07/01/2018, serum creatinine based estimated GFR (eGFR) will be calculated using the Chronic Kidney Disease Epidemiology Collaboration (CKD-EPI) equation. Calcium 9.2 8.5 - 10.1 mg/dL 08/19/2019 6:09 PM TIMBER APPRAISER [facility] Blood specimen (specimen) 08/19/2019 5:41 PM TIMBER APPRAISER 08/19/2019 5:47 PM TIMBER APPRAISER Ravinder Nichole MD LAB - BLOOD [facility] [address] [place], [place] [address] [phone] from Last 3 Months or Most Recently Relevant to Health Maintenance Care Teams Emergency Technician Relationship Specialty Start Date End Date Sajan Petit MD [facility] [address] [place] [address] PCP - General Family Practice 08/19/19 Tavo Vazquez MD [facility] [address] [facility] [address] [place] [address] Oncology 02/12/17
--- OUTSIDE RECORDS SUMMARY | 2024-04-13 12:03 | XMS_ITS | Clinical Summary ---
Author Organization [employer] [facility] Address [place], [place] [address] Care Team Providers Care Loom Fixer Supervisor Name Role Phone Sajan Petit MD Primary Care Provider [phone] Allergies Active Allergy Reactions Criticality Noted Date [...] Comments Blood Pressure 139/66 09/13/2023 10:15 AM FORENSIC CHEMIST Pulse 75 09/13/2023 10:15 AM FORENSIC CHEMIST Temperature 37.1 ??C (98.7 ??F) 09/13/2023 7:16 AM CS T Respiratory Rate 16 09/13/2023 10:15 AM FORENSIC CHEMIST Oxygen Saturation 99% 09/13/2023 10:15 AM FORENSIC CHEMIST Inhaled Oxygen Concentration - - Weight 98 kg (216 lb) 09/13/2023 7:16 AM FORENSIC CHEMIST Height 165.1 cm (5' 5) 09/13/2023 7:16 AM FORENSIC CHEMIST Body Mass Index 35.94 09/13/2023 7:16 AM FORENSIC CHEMIST Plan of Treatment Upcoming Encounters Date Type Department Care Team (Late st Contact Info) Description 05/22/2024 10:15 AM FORENSIC CHEMIST Appointment [facility] [address] [place], [place] [id number] Health Maintenance Due Date Last Done Comments Pneumococcal series for age 6-64 (1 of 2 - PCV) 1972 Tdap 1977 Depression screening for age 12+ 1978 HIV for age 15-65 1981 BMI (ht and wt on same day) for age 18+ 1984 Hepatitis C screening for ag e 18-79 1984 Zoster (shingles) series for age 50+ (1 of 2) 1985 Tetanus booster 1986 Colonoscopy through age 75 11/02/2011 Lipids for age 45-75 11/02/2011 Mammogram for age 45-75 01/02/2020 01/01/2019, 12/31 COVID-19 vaccine series (5 - 2024-25 season) 2024 04/18/2022, 09/26/2021, 01/31/2021, Additional history exists Influenza for age 50-64 03/15/2024 Pap test for age 21-65 07/29/2026 4, 07/29/2023, 01/20/2018, Additional history exists Procedures Procedure Name Priority Date/Time Associated Diagnosis Comments HPV HIGH RISK Routine 07/29/2023 12:00 PM FORENSIC CHEMIST SCAN-MAMMOGRAPHY REPORT 01/01/2019 12:00 AM CDT from Last 3 Months or Most Recently Relevant to Health Maintenance Results * HPV HIGH RISK (07/29/2023 12:00 PM FORENSIC CHEMIST) TYPE 16 Negative Negative 08/01/2023 5:31 PM FORENSIC CHEMIST [facility] TYPE 18 Negative Negative 08/01/2023 5:31 PM FORENSIC CHEMIST [facility] OTHER HIGH RISK TYPES Negative Negative 08/01/2023 5:31 PM FORENSIC CHEMIST [facility] Other (Cervical) 07/29/2023 12:00 PM FORENSIC CHEMIST 07/30/2023 6:07 PM FORENSIC CHEMIST Narrative [facility] - 08/01/2023 5:31 PM FORENSIC CHEMIST HPV types 16, 18, 31, 33, 35, 39, 45, 51, 52, 56, 58, 59, 66 and 68 DNA were undetectable or below the pre-set threshold. Methodology: Sania Un[facility] 4800 HPV Test Doctor Unknown [facility] [address] [place] [address], * SCAN-MAMMOGRAPHY REPORT (01/01/2019 12:00 AM CDT) [...] Code Status Discussion: Not Discussed Care Teams Loom Fixer Supervisor Relationship Specialty Start Date End Date Sajan Petit MD [address] [place] [address] PCP - General Family Practice 04/28/18
--- OUTSIDE RECORDS SUMMARY | 2024-04-13 12:03 | XMS_ITS | Clinical Summary ---
Author Organization [facility] Address [address] [place] [address] Care Team Providers Care Dining Room Busser Name Role Phone Sajan Petit MD Primary Care Provider [phone] Source Comments You are receiving this document as you are listed as the primary care provider,follow-up provider, or the patient has been referred to you for consultation.This is in compliance with the Medicare and[facility] EHR Incentive Program,which states Providers who transition their patient to another setting of careor provider of care or refers their patient to another provider of care shouldprovide summary care record for each transition of care or referral. Critical access hospital Allergies Active Allergy Reactions Criticality Noted Date [...] Zoster/Shingles (1 of 2) 2016 COVID-19 Vaccine ( - 2023-2 5 season) 2024 Influenza (#1) 2024 HepA Aged Out No longer eligi [...] age to complete this topic Care Teams Dining Room Busser Relationship Specialty Start Date End Date Sajan Petit MD [address] [place] [address] PCP - General Family Practice 12/14/22
--- NOTE | 2024-04-13 12:15 | CRLHL7_ITS ---
For Patients: As a result of the Century Cures Act, medical imaging exams and procedure reports are released immediately into your electronic medical record. You may view this report before your referring provider. If you have questions, please contact your health care provider. INDICATION: Left upper extremity swelling. COMPARISON: None available. TECHNIQUE: A compression venous ultrasound exam was performed of the left upper extremity using grace-scale imaging, color Doppler, and spectral Doppler analysis. FINDINGS: Sonographic imaging of the left upper extremity demonstrates normal compressibility and color Doppler venous blood flow within the internal jugular, innominate, subclavian, axillary, brachial, basilic, cephalic, radial, and ulnar veins. IMPRESSION: Negative for acute DVT in the left upper extremity. Dictated by Cyndi Friedman MD @ 04/14/2024 2:45:24 AM (Electronically Signed)
== END 2024-04-13 12:00 | disposition home or self-care (01) ==
PROVIDERS: PCP Family Medicine; Visit Provider Physician Assistant
DX: R22.32 Localized swelling, mass and lump, left upper limb (principal); C50.111 Malignant neoplasm of central portion of right female breast
CPT/HCPCS: 93971

== ENCOUNTER 2024-08-07 08:10 | Outpatient (CLI) | payer BC, SELFPAY | END 2024-08-07 08:11 | disposition home or self-care (01) | LOC: NFLDREF 08-16 23:44 | PROVIDERS: PCP Family Medicine; Referring Provider Family Medicine; Visit Provider Family Medicine | DX: I10 Essential (primary) hypertension (principal); E78.00 Pure hypercholesterolemia, unspecified; R73.03 Prediabetes; C78.6 Secondary malignant neoplasm of retroperitoneum and peritoneum | CPT/HCPCS: 80053; 80061 ==

== ENCOUNTER 2024-12-05 09:10 | Outpatient (CLI) | payer BC, SELFPAY | END 2024-12-05 09:11 | disposition home or self-care (01) | LOC: NFLDREF 12-10 14:50 | PROVIDERS: PCP Family Medicine; Referring Provider Family Medicine | DX: R10.13 Epigastric pain (principal); R19.5 Other fecal abnormalities | CPT/HCPCS: 87338 ==

== ENCOUNTER 2025-06-11 15:53 | Outpatient (CLI) | payer BC, SELFPAY | END 2025-06-11 15:54 | disposition home or self-care (01) | PROVIDERS: PCP Family Medicine; Visit Provider Family Medicine | DX: N17.9 Acute kidney failure, unspecified (principal); D64.9 Anemia, unspecified | CPT/HCPCS: 80069; 82607; 82728; 83735 ==